=== PATIENT | female | born 1940 | race Hispanic/Latino ===

== ENCOUNTER → 2024-05-25 | Outpatient (CLI) | payer MEDICARE ==
[~2024-05-25] MED LIST: CEPH500C2 PO; LIDOCAINE HCL 4% LTA SOL 4 ML VIAL TP ONE; SILV25CR23 TP
== END | disposition home or self-care (01) ==
LOC: WHH 09:53
PROVIDERS: ATTEND Family Medicine
DX: T24.331A Burn of third degree of right lower leg, initial encounter (principal); T24.311A Burn of third degree of right thigh, initial encounter; Z98.49 Cataract extraction status, unspecified eye; Z90.49 Acquired absence of other specified parts of digestive tract; X08.8XXA Exposure to other specified smoke, fire and flames, initial encounter; Y93.89 Activity, other specified; Y92.89 Other specified places as the place of occurrence of the external cause; Y99.8 Other external cause status
CPT/HCPCS: G0463; A4450

== ENCOUNTER → 2024-06-01 | Outpatient (CLI) | payer MEDICARE ==
[~2024-06-01] MED LIST changes: -CEPH500C2 PO
== END | disposition home or self-care (01) ==
LOC: WHH 08:09
PROVIDERS: ATTEND Family Medicine
DX: T24.331D Burn of third degree of right lower leg, subsequent encounter (principal); T24.311D Burn of third degree of right thigh, subsequent encounter; Z98.49 Cataract extraction status, unspecified eye; Z90.49 Acquired absence of other specified parts of digestive tract; X08.8XXD Exposure to other specified smoke, fire and flames, subsequent encounter
CPT/HCPCS: G0463; A4450

== ENCOUNTER → 2024-06-08 | Outpatient (CLI) | payer MEDICARE | END | disposition home or self-care (01) | LOC: WHH 07:59 | PROVIDERS: ATTEND Family Medicine | DX: T24.331D Burn of third degree of right lower leg, subsequent encounter (principal); T24.311D Burn of third degree of right thigh, subsequent encounter; Z98.49 Cataract extraction status, unspecified eye; Z90.49 Acquired absence of other specified parts of digestive tract; X08.8XXD Exposure to other specified smoke, fire and flames, subsequent encounter | CPT/HCPCS: 11042; 11045; 16020 ==

== ENCOUNTER → 2024-06-15 | Outpatient (CLI) | payer MEDICARE | END | disposition home or self-care (01) | LOC: WHH 07:48 | PROVIDERS: ATTEND Family Medicine | DX: T24.331D Burn of third degree of right lower leg, subsequent encounter (principal); T24.311D Burn of third degree of right thigh, subsequent encounter; Z98.49 Cataract extraction status, unspecified eye; Z90.49 Acquired absence of other specified parts of digestive tract; X08.8XXD Exposure to other specified smoke, fire and flames, subsequent encounter; Z79.899 Other long term (current) drug therapy | CPT/HCPCS: G0463 ==